=== PATIENT | female | born 1985 | race Caucasian/White ===

== ENCOUNTER 2018-01-08 16:48 | Emergency (ER) | payer SELFPAY ==
[2018-01-08] MEDS ORDERED: METOCLOPRAMIDE 10 MG/2mL INJ ONE (18:05)
[2018-01-08] MEDS ORDERED: DIPHENHYDRAMINE 50 MG/ML VIAL ONE (18:05)
[2018-01-08 18:11] LABS: ALT/SGPT 21 U/L (12-78); AST/SGOT 15 U/L (15-37); Albumin 3.7 g/dL (3.4-5.0); Alkaline Phosphatase 70 U/L (45-117); BUN Blood Urea Nitrogen 8 mg/dL (7-18); Bicarbonate 26 mmol/L (21-32); Bilirubin Total 0.2 mg/dL (0.2-1.0); Glucose Level 99 mg/dL (74-106); Potassium 3.6 mmol/L (3.5-5.1); Sodium Level 142 mmol/L (136-145); Troponin (Emerg Dept Use Only) < 0.02 ng/mL (0.0-0.045)
[2018-01-08 18:25] LABS: Absolute Lymphocytes (CBC) 1.7 K/uL (0.7-4.9); Absolute Monocytes 0.5 K/uL (0.1-1.3); Absolute Neutrophil 5.1 K/uL (1.8-8.0); Basophils % 0.7 % (0-1.3); Eosinophils % 2.3 % (0-4.4); Lymphocytes % 22.9 % (15.3-44.8); MCV 63.3 fL (80-100); MPV 7.9 fL (7.6-11.3); RBC Red Blood Cell Count 4.59 M/uL (3.86-4.86)
--- NOTE | 2018-01-08 18:49 | EDPHYS ---
Physician Documentation [facility] Name: Danielle Arroyo Age: 32 yrs Sex: Female : 1985 Arrival Date: 01/08/2018 Time: 16:51 Bed 27 Private MD: Brooks George E ED Physician Kole Robles HPI: 01/08 18:41 This 32 yrs old Female presents to ER via Wheelchair with complaints of ps1 Headache. 18:41 patient presenting with generalized fatigue, lightheaded, and headache. Headache ps1 described as throbbing. History of headaches before in the past. States that she gets more lightheaded with exertion as if she was walking on clouds and with tunnel vision. Worse with menses. Recently on menstrual cycle. No chest pain, tightness, or pressure.. 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 - Social history:: Smoking status: Patient/guardian denies using tobacco. - Ebola Screening: : No symptoms or risks identified at this time. ROS: 18:41 Eyes: Negative for injury, pain, redness, and discharge, ENT: Negative for injury, ps1 pain, and discharge, Cardiovascular: Negative for chest pain, palpitations, and edema, Respiratory: Negative for shortness of breath, cough, wheezing, and pleuritic chest pain, Abdomen/GI: Negative for abdominal pain, nausea, vomiting, diarrhea, and constipation, MS/Extremity: Negative for injury and deformity, Skin: Negative for injury, rash, and discoloration. 18:41 Constitutional: Positive for fatigue. 18:41 Neuro: Positive for near syncope. Exam: 18:41 Constitutional: This is a well developed, well nourished patient who is awake, alert, ps1 and in no acute distress. Head/Face: Normocephalic, atraumatic. Chest/axilla: Normal chest wall appearance and motion. Nontender with no deformity. No lesions are appreciated. Cardiovascular: Regular rate and rhythm. No gallops, murmurs, or rubs. Normal PMI, no JVD. No pulse deficits. Respiratory: Lungs have equal breath sounds bilaterally, clear to auscultation and percussion. No rales, rhonchi or wheezes noted. No increased work of breathing, no retractions or nasal flaring. Abdomen/GI: Soft, non-tender, with normal bowel sounds. No distension or tympany. No guarding or rebound. No evidence of tenderness throughout. MS/ Extremity: Pulses equal, no cyanosis. Neurovascular intact. Full, normal range of motion. Neuro: Awake and alert, GCS 15, oriented to person, place, time, and situation. Cranial nerves II-XII grossly intact. Sensory grossly intact. Vital Signs: 17:03 BP 124 / 79; Pulse 95; Resp 18; Temp 98.3; Pulse Ox 100% ; Weight 99.79 kg; Height 5 sv ft. 3 in. (160.02 cm); Pain 7/10; 17:03 Body Mass Index 38.97 (99.79 kg, 160.02 cm) sv MDM: 17:38 Patient medically screened. ps1 17:48 Data reviewed: vital signs, nurses notes, lab test result(s), EKG, radiologic studies, ps1 and as a result, I will discharge patient. 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 . 11 17:32 Order name: CBC with Diff ps1 01/08 17:32 Order name: CMP; Complete Time: 18:25 ps1 01/08 17:32 Order name: Troponin (emerg Dept Use Only); Complete Time: 18:25 ps1 01/08 18:36 Order name: CBC Smear Scan EDMS 01/08 17:02 Order name: Urine Test (obtain specimen) sn 01/08 17:02 Order name: Urine Dipstick-Ancillary (obtain specimen) [facility] 01/08 17:32 Order name: Orthostatics ps1 01/08 17:32 Order name: EKG - Nurse/Tech; Complete Time: 17:54 ps1 EC:48 Rate is 76 beats/min. Rhythm is regular. QRS [place] is Normal. [place] interval is normal. QRS ps1 interval is normal. QT interval is normal. No Q waves. T waves are Normal. No ST changes noted. Clinical impression: Normal ECG. Interpreted by me. Administered Medications: 18:00 Drug: Reglan 10 mg Route: IVP; Site: right forearm; rv 18:59 Follow up: Response: No adverse reaction rv 18:00 Drug: Benadryl 50 mg Route: IVP; Site: left forearm; rv 18:59 Follow up: Response: No adverse reaction rv Disposition: 01/08/18 18:48 Discharged to Home. Impression: Iron deficiency anemia, Fatigue, lightheaded, migraine. - Condition is Stable. - Discharge Instructions: Iron Deficiency Anemia, Adult. - Prescriptions for Ferrous Sulfate 325 mg (65 mg Iron) Oral Tablet - take 1 tablet by ORAL route every 8 hours; 90 tablet. - Medication Reconciliation Form, Thank You Letter, Antibiotic Education, Prescription Opioid Use form. - Follow up: Brooks George MD; When: As needed; Reason: Recheck today's complaints, Continuance of care, Re-evaluation by your physician. Follow up: Emergency Department; When: As needed; Reason: Worsening of condition. - Problem is chronic. - Symptoms have worsened. Signatures: Dispatcher [employer] EDMehreen Summers, RN RN sv Gunjan Ca, DISTRICT CLAIMS MANAGER-C DISTRICT CLAIMS MANAGER-Csnw Kole Robles MD MD ps1 Ger Zheng RN RN rv Corrections: (The following items were deleted from the chart) 19:10 18:48 01/08/2018 18:48 Discharged to Home. Impression: Iron deficiency anemia; Fatigue; rv lightheaded; migraine. Condition is Stable. Forms are Medication Reconciliation Form, Thank You Letter, Antibiotic Education, Prescription Opioid Use. Follow up: Brooks George; When: As needed; Reason: Recheck today's complaints, Continuance of care, Re-evaluation by your physician. Follow up: Emergency Department; When: As needed; Reason: Worsening of condition. Problem is chronic. Symptoms have worsened. ps1
--- NOTE | 2018-01-08 18:49 | ER ---
Nurse's Notes [facility] Name: Danielle Arroyo Age: 32 yrs Sex: Female : 1985 Arrival Date: 01/08/2018 Time: 16:51 Bed 27 Private MD: Brooks George E Diagnosis: Iron deficiency anemia;Fatigue;lightheaded;migraine Presentation: 01/08 17:01 Presenting complaint: Patient states: frontal headache started today after becoming sv dizzy. Pt reports she's been dizzy for months but it got bad today. c/o photophobia, nausea and blurry vision. Transition of care: patient was not received from another setting of care. Onset of symptoms was January 08, 2018. Care prior to arrival: None. 17:01 Method Of Arrival: Wheelchair sv 17:01 Acuity: MICHELLE 3 sv 18:07 Risk Assessment: Do you want to hurt yourself or someone else? Patient reports no rv desire to harm self or others. Initial Sepsis Screen: Does the patient meet any 2 criteria? No. Patient's initial sepsis screen is negative. Does the patient have a suspected source of infection? No. Patient's initial sepsis screen is negative. Triage Assessment: 18:09 Headache History: The patient has had previous headaches and this one is similar to rv previous episodes. General: Appears in no apparent distress. uncomfortable, Behavior is calm, cooperative. Pain: Pain currently is 8 out of 10 on a pain scale. Pain began suddenly, 1 hour ago. Also complains of photophobia. 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 - Social history:: Smoking status: Patient/guardian denies using tobacco. - Ebola Screening: : No symptoms or risks identified at this time. Screenin:07 Abuse screen: Denies threats or abuse. Denies injuries from another. Nutritional rv screening: No deficits noted. Tuberculosis screening: No symptoms or risk factors identified. Fall Risk None identified. Assessment: 18:06 General: Appears in no apparent distress. comfortable, Behavior is calm, cooperative. rv Pain: Complains of pain in head. Neuro: Level of Consciousness is awake, alert, obeys commands, Oriented to person, place, time, situation. Cardiovascular: Capillary refill < 3 seconds Rhythm is regular. Respiratory: Airway is patent. GI: No signs and/or symptoms were reported involving the gastrointestinal system. : No signs and/or symptoms were reported regarding the genitourinary system. EENT: No signs and/or symptoms were reported regarding the EENT system. Derm: Skin is intact. Musculoskeletal: No signs and/or symptoms reported regarding the musculoskeletal system. Vital Signs: 17:03 BP 124 / 79; Pulse 95; Resp 18; Temp 98.3; Pulse Ox 100% ; Weight 99.79 kg; Height 5 sv ft. 3 in. (160.02 cm); Pain 7/10; 17:03 Body Mass Index 38.97 (99.79 kg, 160.02 cm) sv ED Course: 16:51 Patient arrived in ED. sb2 16:51 Brooks George MD is Private Physician. sb2 17:02 Triage completed. sv 17:03 Arm band placed on. sv 17:09 Kole Robles MD is Attending Physician. ps1 17:45 Inserted saline lock: 20 gauge in right forearm, using aseptic technique. Blood rv collected. 17:45 Initial lab(s) drawn, by me, sent to lab. EKG done, by ED staff, reviewed by Kole Robles MD. 17:54 CBC with Diff Sent. rv 17:54 CMP Sent. rv 17:54 Troponin (emerg Dept Use Only) Sent. rv 18:07 Patient has correct armband on for positive identification. Bed in low position. Call rv light in reach. Side rails up X2. Adult w/ patient. Pulse ox on. NIBP on. 18:48 Brooks George MD is Referral Physician. ps1 19:00 No provider procedures requiring assistance completed. IV discontinued, bleeding rv controlled, No redness/swelling at site. Pressure dressing applied. Administered Medications: 18:00 Drug: Reglan 10 mg Route: IVP; Site: right forearm; rv 18:59 Follow up: Response: No adverse reaction rv 18:00 Drug: Benadryl 50 mg Route: IVP; Site: left forearm; rv 18:59 Follow up: Response: No adverse reaction rv Outcome: 18:48 Discharge ordered by . ps1 19:00 Discharged to home via wheelchair. rv 19:00 Condition: good 19:00 Discharge instructions given to patient, Instructed on discharge instructions, follow up and referral plans. medication usage, Demonstrated understanding of instructions, follow-up care, medications. 19:10 Patient left the ED. rv Signatures: Mehreen Camacho RN RN sv Kole Robles MD MD ps1 Mirna Tamez sb2 Ger Zheng RN RN rv Corrections: (The following items were deleted from the chart) 17:03 17:01 Presenting complaint: Patient states: frontal headache started today after sv becoming dizzy. Pt reports she's been dizzy for months but it got bad today. c/o photophobia, nausea. sv
[2018-01-08 18:57] LABS: Urine White Blood Cell Casts OK
[2018-01-08 18:58] LABS: Anisocytosis 1+; Blood Morphology Comment NOTED (NOT SEEN); Elliptocytes 1+; Hypochromasia 2+; Platelet Estimate ADEQ; Stomatocytes 1+
--- NOTE | 2018-01-09 07:39 | EKG ---
Test Date: 2018-01-08 Test Time: 17:48:36 Customs Patrol Officer: MEASUREMENT RESULTS: Intervals: Rate: 76 ID: [id number] QRSD: 88 QT: 374 QTc: 420 [place]: P: 45 ID: [id number] QRS: 50 T: 41 INTERPRETIVE STATEMENTS: Normal sinus rhythm Normal ECG No previous ECG available for comparison Electronically Signed On 01-09-18 07:38:44 COURSEWARE DEVELOPER by Yvon Nassar
== END 2018-01-08 19:10 | disposition home or self-care (01) ==
LOC: ER 16:48
DX: G43.909 Migraine, unspecified, not intractable, without status migrainosus (principal); D50.9 Iron deficiency anemia, unspecified; R53.83 Other fatigue; R42 Dizziness and giddiness
CPT/HCPCS: 36415; 80053; 84484; 85025; 93005; 99284; J2765

== ENCOUNTER 2018-06-17 10:26 | Emergency (ER) | payer BC, SELFPAY ==
[2018-06-17 11:09] LABS: Absolute Lymphocytes (CBC) 0.3 K/uL (0.7-4.9); Absolute Monocytes 0.4 K/uL (0.1-1.3); Absolute Neutrophil 8.4 K/uL (1.8-8.0); Basophils % 0.3 % (0-1.3); Eosinophils % 2.1 % (0-4.4); Lymphocytes % 3.3 % (15.3-44.8); MPV 8.4 fL (7.6-11.3); RBC Red Blood Cell Count 5.02 M/uL (3.86-4.86)
[2018-06-17] MEDS ORDERED: ONDANSETRON 4 MG/2 ML VIAL ONE ×2 (11:15→15:23)
[2018-06-17] MEDS ORDERED: MORPHINE 2 MG/ML SYR ONE (11:15)
[2018-06-17] MEDS ORDERED: FAMOTIDINE 20 MG/2 ML VIAL IV ONE (11:15)
[2018-06-17] MEDS ORDERED: NA CHLORIDE 0.9% 1,000 ML ONE ×2 (11:15→12:40)
[2018-06-17 11:26] LABS: Albumin 3.8 g/dL (3.4-5.0); Bilirubin Direct 0.1 mg/dL (0-0.2); Bilirubin Total 0.6 mg/dL (0.2-1.0); Potassium 3.8 mmol/L (3.5-5.1); Protein, Total 8.4 g/dL (6.4-8.2)
[2018-06-17 13:13] LABS: Hypochromasia 2+; Platelet Estimate ADEQ; Urine White Blood Cell Casts OK
[2018-06-17 13:40] LABS: Blood Morphology Comment NOT SEEN (NOT SEEN)
[2018-06-17 13:47] LABS: Phosphorus 1.1 mg/dL (2.5-4.9)
--- NOTE | 2018-06-17 14:09 | EDPHYS ---
Physician Documentation [facility] Name: Danielle Arroyo Age: 33 yrs Sex: Female : 1985 Arrival Date: 06/17/2018 Time: 10:31 Bed 5 Private MD: ED Physician Rajesh Chance HPI: 06/17 11:00 This 33 yrs old Female presents to ER via Wheelchair with complaints of cp Vomiting/Diarrhea. 11:00 The patient presents to the emergency department with nausea, with "dry heaves", cp vomiting, that is continuous, diarrhea, that is continuous. Onset: The symptoms/episode began/occurred last night. 11:00 Possible causes: bad food exposure, ate clam bake earlier yesterday. cp 11:00 Associated signs and symptoms: Pertinent negatives: fever, GI bleeding. Severity of cp symptoms: in the emergency department the symptoms are unchanged despite home interventions. Historical: - Allergies: 10:43 No Known Allergies; sv - PMHx: 10:43 None; sv - PSHx: 10:43 back surgery; ; gastric sleeve; sv - Immunization history:: Adult Immunizations up to date. - Ebola Screening: : Patient denies travel to an Ebola-affected area in the 21 days before illness onset. ROS: 11:10 Constitutional: Positive for poor PO intake, Negative for body aches, chills, fever. cp 11:10 Eyes: Negative for injury, pain, redness, and discharge. cp 11:10 ENT: Negative for drainage from ear(s), ear pain, sore throat, difficulty swallowing, difficulty handling secretions. 11:10 Cardiovascular: Negative for chest pain, edema, palpitations. 11:10 Respiratory: Negative for cough, shortness of breath, wheezing. 11:10 Abdomen/GI: Positive for abdominal pain, nausea, vomiting, and diarrhea, Negative for constipation, hematemesis, black/tarry stool, rectal bleeding. 11:10 Back: Negative for pain at rest, pain with movement. 11:10 : Negative for urinary symptoms, vaginal bleeding, vaginal discharge. 11:10 Skin: Negative for rash. 11:10 Neuro: Positive for dizziness, Negative for altered mental status, weakness. 11:10 All other systems are negative. Exam: 11:15 Constitutional: The patient appears in no acute distress, alert, awake, cp non-diaphoretic, non-toxic, well developed, well nourished, obese, uncomfortable. 11:15 Head/Face: Normocephalic, atraumatic. cp 11:15 Eyes: Periorbital structures: appear normal, Conjunctiva: normal, no exudate, no injection, Sclera: no appreciated abnormality, Lids and lashes: appear normal, bilaterally. 11:15 ENT: External ear(s): are unremarkable, Nose: is normal, Mouth: Lips: moist, Oral mucosa: pink and intact, moist, Posterior pharynx: is normal, airway is patent, no erythema, no exudate. 11:15 Chest/axilla: Inspection: normal, Palpation: is normal, no crepitus, no tenderness. 11:15 Cardiovascular: Rate: tachycardic, Rhythm: regular, Edema: is not appreciated, JVD: is not appreciated. 11:15 Respiratory: the patient does not display signs of respiratory distress, Respirations: normal, no use of accessory muscles, no retractions, no splinting, no tachypnea, labored breathing, is not present, Breath sounds: are clear throughout, no decreased breath sounds, no stridor, no wheezing. 11:15 Abdomen/GI: Inspection: obese Bowel sounds: active, all quadrants, Palpation: soft, in all quadrants, moderate abdominal tenderness, in all quadrants, rebound tenderness, is not appreciated, voluntary guarding, is elicited in all quadrants, involuntary guarding, is not appreciated. 11:15 Back: pain, is absent, ROM is normal. 11:15 Skin: no rash present. Vital Signs: 10:43 BP 115 / 79; Pulse 126; Resp 20; Temp 100; Pulse Ox 99% ; Weight 102.06 kg; Height 5 sv ft. 3 in. (160.02 cm); Pain 7/10; 11:10 BP 118 / 73; Pulse 113; Resp 20; Pulse Ox 100% on R/A; aj1 12:39 BP 125 / 57; Pulse 105; Resp 18; Pulse Ox 100% on R/A; aj1 13:30 BP 132 / 62; Pulse 99; Resp 18; Pulse Ox 100% on R/A; aj1 14:30 BP 131 / 69; Pulse 99; Resp 18; Pulse Ox 100% on R/A; aj1 10:43 Body Mass Index 39.86 (102.06 kg, 160.02 cm) sv MDM: 10:47 Patient medically screened. [facility] 14:07 Data reviewed: vital signs, nurses notes, lab test result(s), and as a result, I will cp discharge patient. 14:07 Differential diagnosis: gastritis, cholecystitis, pancreatitis, appendicitis, viral cp gastroenteritis, gastroenteritis. Counseling: I had a detailed discussion with the patient and/or guardian regarding: the historical points, exam findings, and any diagnostic results supporting the discharge/admit diagnosis, lab results, to return to the emergency department if symptoms worsen or persist or if there are any questions or concerns that arise at home. Response to treatment: the patient's symptoms have markedly improved after treatment, VSS. Vomiting resolved and pain markedly improved. Will discharge to home for continued monitoring. 06/17 10:56 Order name: Basic Metabolic Panel; Complete Time: 11:37 [facility] 06/17 11:38 Interpretation: Normal except: CL 109; GLUC 127; GFR 62; CA 8.3. 06/17 10:56 Order name: CBC with Diff; Complete Time: 14:02 [facility] 06/17 11:38 Interpretation: Normal except: RBC 5.02; HGB 9.8; HCT 32.0; MCV 63.8; MCH 19.5; MCHC cp 30.5; RDW 17.2; VANDANA% 90.3; LYM% 3.3; NEUT A 8.4; LYMA 0.3. 06/17 10:56 Order name: Creatinine for Radiology; Complete Time: 11:37 [facility] 06/17 10:56 Order name: Hepatic Function; Complete Time: 11:37 [facility] 06/17 11:39 Interpretation: Normal except: AST 13; TP 8.4; GLOB 4.6; A/G 0.8. 06/17 10:56 Order name: Lipase; Complete Time: 11:37 [facility] 06/17 11:01 Order name: Magnesium; Complete Time: 14:02 06/17 11:01 Order name: Phosphorus; Complete Time: 14:02 06/17 14:02 Interpretation: Abnormal: PHOS 1.1. 06/17 11:34 Order name: CBC Smear Scan; Complete Time: 14:02 EDMS 06/17 14:45 Order name: Urine Dipstick--Ancillary (enter results); Complete Time: 15:23 ms 06/17 15:23 Interpretation: Normal except: UESTR 1+. cp 06/17 14:45 Order name: Urine --Ancillary (enter results); Complete Time: 15:23 ms 06/17 10:56 Order name: IV Saline Lock; Complete Time: 11:10 [facility] 06/17 10:56 Order name: Labs collected and sent; Complete Time: 11:10 [facility] 06/17 11:49 Order name: PO challenge; Complete Time: 12:36 cp Administered Medications: 11:08 Drug: Zofran 4 mg Route: IVP; Site: right antecubital; aj1 12:00 Follow up: Response: No adverse reaction; Nausea is decreased aj1 11:08 Drug: Pepcid 20 mg Route: IVP; Site: right antecubital; aj1 12:00 Follow up: Response: No adverse reaction aj1 11:08 Drug: morphine 2 mg Route: IVP; Site: right antecubital; aj1 12:00 Follow up: Response: No adverse reaction; Pain is decreased aj1 11:09 Drug: NS 0.9% 1000 ml Route: IV; Rate: 1 bolus; Site: right antecubital; aj1 14:36 Follow up: IV Status: Completed infusion; IV Intake: 1000ml aj1 12:36 Drug: NS 0.9% 1000 ml Route: IV; Rate: 1 bolus; Site: right antecubital; aj1 14:35 Follow up: IV Status: Completed infusion; IV Intake: 1000ml aj1 15:19 Drug: Zofran 4 mg Route: IVP; Site: right antecubital; aj1 15:52 Follow up: Response: No adverse reaction aj1 15:51 Drug: Potassium \\T\\ Sodium Phosphates 280 mg-160 mg-250 mg 2 packets Route: PO; aj1 15:51 Follow up: Response: No adverse reaction aj1 Disposition: 06/18 07:54 Co-signature as Attending Physician, Rajesh Chance MD I agree with the assessment and dany plan of care. Disposition: 06/17/18 14:08 Discharged to Home. Impression: Nausea and vomiting, Diarrhea, unspecified, Iron deficiency anemia. - Condition is Stable. - Discharge Instructions: Iron Deficiency Anemia, Adult, Diarrhea, Adult, Nausea and Vomiting, Adult, Hypophosphatemia. - Prescriptions for Zofran 4 mg Oral Tablet - take 1 tablet by ORAL route every 12 hours As needed; 20 tablet. Bentyl 20 mg Oral Tablet - take 1 tablet by ORAL route every 6 hours As needed; 20 tablet. - Medication Reconciliation Form, Thank You Letter, Antibiotic Education, Prescription Opioid Use form. - Follow up: Private Physician; When: 1 - 2 days; Reason: Worsening of condition. - Problem is new. - Symptoms have improved. Signatures: Dispatcher [employer] EDMI Louisa Plata RN RN aj1 Mehreen Camacho RN RN Rajesh Braxton MD MD cha Page, Corey, PA PA cp Corrections: (The following items were deleted from the chart) 06/17 11:38 11:37 Normal except: CL 109; GLUC 127; GFR 62. cp cp 14:11 14:08 06/17/2018 14:08 Discharged to Home. Impression: Nausea and vomiting; Diarrhea, cp unspecified. Condition is Stable. Forms are Medication Reconciliation Form, Thank You Letter, Antibiotic Education, Prescription Opioid Use. Follow up: Private Physician; When: 1 - 2 days; Reason: Worsening of condition. Problem is new. Symptoms have improved. cp 15:56 14:11 06/17/2018 14:08 Discharged to Home. Impression: Nausea and vomiting; Diarrhea, aj1 unspecified; Iron deficiency anemia. Condition is Stable. Discharge Instructions: Diarrhea, Adult, Nausea and Vomiting, Adult, Hypophosphatemia. Prescriptions for Zofran 4 mg Oral Tablet - take 1 tablet by ORAL route every 12 hours As needed; 20 tablet. and Forms are Medication Reconciliation Form, Thank You Letter, Antibiotic Education, Prescription Opioid Use. Follow up: Private Physician; When: 1 - 2 days; Reason: Worsening of condition. Problem is new. Symptoms have improved. cp
--- NOTE | 2018-06-17 14:09 | ER ---
Nurse's Notes [facility] Name: Danielle Arroyo Age: 33 yrs Sex: Female : 1985 Arrival Date: 06/17/2018 Time: 10:31 Bed 5 Private MD: Diagnosis: Nausea and vomiting;Diarrhea, unspecified;Iron deficiency anemia Presentation: 06/17 10:42 Presenting complaint: Patient states: diffuse abd pain, n/v/d since 0300 today and sv headache started at 0500. Feels faint. Transition of care: patient was not received from another setting of care. Onset of symptoms was June 17, 2018 at 03:00. Care prior to arrival: None. 10:42 Method Of Arrival: Wheelchair sv 10:42 Acuity: MICHELLE 3 sv 11:13 Risk Assessment: Do you want to hurt yourself or someone else? Patient reports no aj1 desire to harm self or others. Initial Sepsis Screen: Does the patient meet any 2 criteria? HR > 90 bpm. No. Patient's initial sepsis screen is negative. Does the patient have a suspected source of infection? Yes: Acute abdominal pain. Historical: - Allergies: 10:43 No Known Allergies; sv - PMHx: 10:43 None; sv - PSHx: 10:43 back surgery; ; gastric sleeve; sv - Immunization history:: Adult Immunizations up to date. - Ebola Screening: : Patient denies travel to an Ebola-affected area in the 21 days before illness onset. Screenin:45 Abuse screen: Denies threats or abuse. Denies injuries from another. Nutritional aj1 screening: No deficits noted. Tuberculosis screening: No symptoms or risk factors identified. 15:55 Fall Risk None identified. aj1 Assessment: 10:45 General: Appears in no apparent distress. uncomfortable, Behavior is calm, cooperative, aj1 appropriate for age. Pain: Complains of pain in right upper quadrant and left upper quadrant. Neuro: Level of Consciousness is awake, alert, obeys commands, Oriented to person, place, time, situation, Speech is normal, Facial symmetry appears normal, Reports dizziness, headache. Cardiovascular: Patient's skin is warm and dry. Respiratory: Airway is patent Respiratory effort is even, unlabored, Respiratory pattern is regular, symmetrical. GI: Abdomen is non-distended, Reports diarrhea, nausea, vomiting. : No signs and/or symptoms were reported regarding the genitourinary system. EENT: No signs and/or symptoms were reported regarding the EENT system. Derm: No signs and/or symptoms reported regarding the dermatologic system. Skin is pink, warm \T\ dry. normal. Musculoskeletal: No signs and/or symptoms reported regarding the musculoskeletal system. Circulation, motion, and sensation intact. 10:45 Reassessment: Patient appears in no apparent distress at this time. No changes from aj1 previously documented assessment. Patient and/or family updated on plan of care and expected duration. Pain level reassessed. Patient is alert, oriented x 3, equal unlabored respirations, skin warm/dry/pink. 12:38 Reassessment: Patient reports that she is feeling much better, PO challenge initiated. aj1 13:30 Reassessment: Patient appears in no apparent distress at this time. No changes from aj1 previously documented assessment. Patient and/or family updated on plan of care and expected duration. Pain level reassessed. Patient is alert, oriented x 3, equal unlabored respirations, skin warm/dry/pink. Patient has tolerated oral fluids. 14:38 Reassessment: Patient appears in no apparent distress at this time. No changes from aj1 previously documented assessment. Patient and/or family updated on plan of care and expected duration. Pain level reassessed. Patient is alert, oriented x 3, equal unlabored respirations, skin warm/dry/pink. 15:20 Reassessment: Nutriphos has arrived from [facility] upon entering patient's room she is aj1 vomiting again. Notified NASREEN Ward. Patient medicated with Zofran, instructed to wait until nausea subsides, drink Nutriphos and notify staff for discharge. 15:54 Reassessment: Patient states that she is feeling better and is ready to be discharged. aj1 Vital Signs: 10:43 BP 115 / 79; Pulse 126; Resp 20; Temp 100; Pulse Ox 99% ; Weight 102.06 kg; Height 5 sv ft. 3 in. (160.02 cm); Pain 7/10; 11:10 BP 118 / 73; Pulse 113; Resp 20; Pulse Ox 100% on R/A; aj1 12:39 BP 125 / 57; Pulse 105; Resp 18; Pulse Ox 100% on R/A; aj1 13:30 BP 132 / 62; Pulse 99; Resp 18; Pulse Ox 100% on R/A; aj1 14:30 BP 131 / 69; Pulse 99; Resp 18; Pulse Ox 100% on R/A; aj1 10:43 Body Mass Index 39.86 (102.06 kg, 160.02 cm) sv ED Course: 10:31 Patient arrived in ED. mr 10:43 Triage completed. sv 10:44 Rajesh Peters PA is PHCP. cp 10:44 Rajesh Chance MD is Attending Physician. cp 10:44 Louisa Plata RN is Primary Nurse. aj1 10:44 Arm band placed on. sv 10:45 Patient has correct armband on for positive identification. Bed in low position. Call aj1 light in reach. Side rails up X 1. 10:45 No provider procedures requiring assistance completed. aj1 10:55 Inserted saline lock: 20 gauge in right antecubital area, using aseptic technique. aj1 Blood collected. 15:55 IV discontinued, intact, bleeding controlled, No redness/swelling at site. Pressure aj1 dressing applied. Administered Medications: 11:08 Drug: Zofran 4 mg Route: IVP; Site: right antecubital; aj1 12:00 Follow up: Response: No adverse reaction; Nausea is decreased aj1 11:08 Drug: Pepcid 20 mg Route: IVP; Site: right antecubital; aj1 12:00 Follow up: Response: No adverse reaction aj1 11:08 Drug: morphine 2 mg Route: IVP; Site: right antecubital; aj1 12:00 Follow up: Response: No adverse reaction; Pain is decreased aj1 11:09 Drug: NS 0.9% 1000 ml Route: IV; Rate: 1 bolus; Site: right antecubital; aj1 14:36 Follow up: IV Status: Completed infusion; IV Intake: 1000ml aj1 12:36 Drug: NS 0.9% 1000 ml Route: IV; Rate: 1 bolus; Site: right antecubital; aj1 14:35 Follow up: IV Status: Completed infusion; IV Intake: 1000ml aj1 15:19 Drug: Zofran 4 mg Route: IVP; Site: right antecubital; aj1 15:52 Follow up: Response: No adverse reaction aj1 15:51 Drug: Potassium \T\ Sodium Phosphates 280 mg-160 mg-250 mg 2 packets Route: PO; aj1 15:51 Follow up: Response: No adverse reaction aj1 Intake: 14:35 IV: 1000ml; Total: 1000ml. aj1 14:36 IV: 1000ml; Total: 2000ml. aj1 Outcome: 14:08 Discharge ordered by . cp 15:55 Discharged to home ambulatory. aj1 15:55 Condition: good 15:55 Discharge instructions given to patient, Instructed on discharge instructions, follow up and referral plans. medication usage, Demonstrated understanding of instructions, follow-up care, medications, Prescriptions given X 2. 15:56 Patient left the ED. aj1 Signatures: Louisa Plata RN RN aj Mehreen Camacho RN RN sv Shruthi Dwyer mr Rajesh Peters PA PA cp Corrections: (The following items were deleted from the chart) 10:49 10:42 Presenting complaint: Patient states: diffuse abd pain, n/v/d since 0300 today. sv Feels faint. sv
[2018-06-17 14:57] LABS: Urine Blood NEGATIVE (NEG); Urine Glucose NEGATIVE (NEG); Urine Protein NEGATIVE (NEG); Urine Specific Gravity 1.015 (1.005-1.030); Urine pH 5.5 (5.0-7.0)
[2018-06-17] MEDS ORDERED: POTASS/SODIUM PHOSPHATE 1 PKT POWD.PACK PO ONE (15:00)
== END 2018-06-17 15:56 | disposition home or self-care (01) ==
LOC: ER 10:26
DX: R19.7 Diarrhea, unspecified (principal); R11.2 Nausea with vomiting, unspecified; D50.9 Iron deficiency anemia, unspecified
CPT/HCPCS: 36415; 80048; 80076; 81003; 81025; 83690; 83735; 84100; 85025; 96361; 96374; 96375; 99284; J2270; J2405; J7030

== ENCOUNTER 2018-10-28 09:23 | Emergency (ER) | payer BC ==
[2018-10-28] MEDS ORDERED: KETOROLAC 30 MG/ML INJ ONE (10:50)
[2018-10-28] MEDS ORDERED: NA CHLORIDE 0.9% 1,000 ML ONE ×2 (10:50→12:23)
[2018-10-28] MEDS ORDERED: PROMETHAZINE 25 MG/ML VIAL ONE (10:50)
[2018-10-28 11:04] LABS: Absolute Lymphocytes (CBC) 0.3 K/uL (0.7-4.9); Basophils % 0.3 % (0-1.3); Hematocrit 28.9 % (36.0-45.0); Lymphocytes % 3.1 % (15.3-44.8); MPV 7.6 fL (7.6-11.3); RBC Red Blood Cell Count 4.58 M/uL (3.86-4.86)
[2018-10-28 11:11] LABS: Urine Bacteria 20-50 /HPF (<20); Urine Culture Reflex Order REFLEXED; Urine Mucus 1+ /HPF (NONE SEEN); Urine RBC <5 /HPF (NONE SEEN)
[2018-10-28 11:11] LABS: Urine Blood NEGATIVE (NEG); Urine Glucose NEGATIVE (NEG); Urine Protein NEGATIVE (NEG)
[2018-10-28] MEDS ORDERED: CEFTRIAXONE/SWI 1gm 1 GM/10 ML SYR ONE (11:20)
[2018-10-28 11:31] LABS: Albumin 3.3 g/dL (3.4-5.0); Bilirubin Direct 0.1 mg/dL (0-0.2); Bilirubin Total 0.4 mg/dL (0.2-1.0); Potassium 3.8 mmol/L (3.5-5.1); Protein, Total 7.9 g/dL (6.4-8.2); Thyroid Stimulating Hormone 0.481 uIU/mL (0.360-3.740)
[2018-10-28 12:35] LABS: Blood Morphology Comment NOT SEEN (NOT SEEN); Platelet Estimate ADEQ; Urine White Blood Cell Casts OK
--- NOTE | 2018-10-28 12:38 | ER ---
Nurse's Notes [facility] Name: Danielle Arroyo Age: 33 yrs Sex: Female : 1985 Arrival Date: 10/28/2018 Time: 09:26 Bed 16 Private MD: Brooks George E Diagnosis: Nausea and vomiting;Diarrhea, unspecified;Dehydration;Urinary tract infection, site not specified;Iron deficiency anemia Presentation: 10/28 09:49 Presenting complaint: Patient states: abd pain, N/V/D since early this morning. la1 Transition of care: patient was not received from another setting of care. Onset of symptoms was October 28, 2018. Risk Assessment: Do you want to hurt yourself or someone else? Patient reports no desire to harm self or others. Initial Sepsis Screen: Does the patient meet any 2 criteria? No. Patient's initial sepsis screen is negative. Does the patient have a suspected source of infection? No. Patient's initial sepsis screen is negative. Care prior to arrival: None. 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 - Social history:: Smoking status: Patient/guardian denies using tobacco. - Ebola Screening: : No symptoms or risks identified at this time. Screenin:10 Abuse screen: Denies threats or abuse. Denies injuries from another. Nutritional sg screening: No deficits noted. Tuberculosis screening: No symptoms or risk factors identified. Never had TB. Fall Risk None identified. Assessment: 10:10 General: Appears in no apparent distress. well groomed, well developed, well nourished, sg Behavior is calm, cooperative, appropriate for age. Pain: Complains of pain in left upper quadrant and epigastric area Quality of pain is described as aching. Neuro: Level of Consciousness is awake, alert, obeys commands, Oriented to person, place, time, situation, Lard Refiner are equal bilaterally Moves all extremities. Full function Gait is steady, Speech is normal, Facial symmetry appears normal. Cardiovascular: Capillary refill is brisk in bilateral fingers Patient's skin is warm and dry. Chest pain is denied. Respiratory: Airway is patent Respiratory effort is even, unlabored, Respiratory pattern is regular, symmetrical. GI: Bowel sounds present X 4 quads. Abd is soft and non tender X 4 quads. : Reports urgency, urinary frequency. EENT: No signs and/or symptoms were reported regarding the EENT system. Derm: Skin is pink, warm \T\ dry. Musculoskeletal: Circulation, motion, and sensation intact. Range of motion: intact in all extremities. 10:55 Reassessment: Patient appears in no apparent distress at this time. sg Vital Signs: 09:50 BP 132 / 76; Pulse 122; Resp 16; Temp 97.8; Pulse Ox 100% on R/A; Weight 111.13 kg; la1 Height 5 ft. 3 in. (160.02 cm); 11:00 BP 127 / 70; Pulse 110; Resp 16; Pulse Ox 99% on R/A; sg 12:24 BP 108 / 65; Pulse 102; Resp 16; Pulse Ox 99% on R/A; sg 09:50 Body Mass Index 43.40 (111.13 kg, 160.02 cm) la1 ED Course: 09:26 Patient arrived in ED. mr 09:26 Brooks George MD is Private Physician. mr 09:48 Gunjan Ca F[facility]-Rufina [facility]. snw 09:48 Rajesh Chance MD is Attending Physician. snw 09:49 Triage completed. la1 09:50 Arm band placed on left wrist. la1 09:55 Homer Perkins, BELKYS is Primary Nurse. sg 10:10 Patient has correct armband on for positive identification. Bed in low position. Call sg light in reach. Side rails up X2. Pulse ox on. NIBP on. Warm blanket given. Head of bed elevated. 10:10 No provider procedures requiring assistance completed. sg 10:23 Urine collected: clean catch specimen, cloudy. dh3 10:45 Initial lab(s) drawn, by me, sent to lab. First set of blood cultures drawn by me. sg Inserted saline lock: 20 gauge in right antecubital area, using aseptic technique. Blood collected. 12:35 Brooks George MD is Referral Physician. snw 13:00 IV discontinued, intact, bleeding controlled, No redness/swelling at site. Pressure sg dressing applied. Administered Medications: 10:50 Drug: TORadol 30 mg Route: IVP; Site: right antecubital; sg 10:50 Drug: Phenergan 6.25 mg Route: IVP; Site: right antecubital; sg 10:56 Drug: NS 0.9% 1000 ml Route: IV; Rate: 1 bolus; Site: right antecubital; sg 11:25 Drug: Rocephin 1 grams Route: IV; Rate: calculated rate; Site: right antecubital; sg 12:25 Drug: NS 0.9% 500 ml Route: IV; Rate: bolus; Site: right antecubital; sg Outcome: 12:37 Discharge ordered by MD. snw 13:15 Discharged to home ambulatory. sg 13:15 Condition: good 13:15 Discharge instructions given to patient, family, Instructed on discharge instructions, follow up and referral plans. medication usage, safety practices, Demonstrated understanding of instructions, follow-up care, medications, Prescriptions given X 2. 13:19 Patient left the ED. eb Signatures: Homer Perkins, RN RN sg Gunjan Ca, FRONT MAN-C FRONT MAN-Csnw Shruthi Dwyer, Pako RN RN Allyson Walters Eugenie Ramsey
--- NOTE | 2018-10-28 12:39 | EDPHYS ---
Physician Documentation [facility] Name: Danielle Arroyo Age: 33 yrs Sex: Female : 1985 Arrival Date: 10/28/2018 Time: 09:26 Bed 16 Private MD: Brooks George E ED Physician Rajesh Chance HPI: 10/28 11:55 This 33 yrs old Female presents to ER via Wheelchair with complaints of snw Abdominal Pain, Vomiting, Headache. 11:55 The patient presents with abdominal pain in the epigastric area, in the upper abdomen. snw Onset: The symptoms/episode began/occurred suddenly, at 02:00, and became persistent. The symptoms do not radiate. Associated signs and symptoms: Pertinent positives: nausea, vomiting, and diarrhea. The symptoms are described as crampy. Severity of pain: At its worst the pain was moderate. The patient has not experienced similar symptoms in the past. The patient has not recently seen a physician. 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 - Social history:: Smoking status: Patient/guardian denies using tobacco. - Ebola Screening: : No symptoms or risks identified at this time. ROS: 11:54 Constitutional: Negative for fever, chills, and weight loss, Eyes: Negative for injury, snw pain, redness, and discharge, ENT: Negative for injury, pain, and discharge, Neck: Negative for injury, pain, and swelling, Cardiovascular: Negative for chest pain, palpitations, and edema, Respiratory: Negative for shortness of breath, cough, wheezing, and pleuritic chest pain, Back: Negative for injury and pain, : Negative for injury, bleeding, discharge, and swelling, MS/Extremity: Negative for injury and deformity, Skin: Negative for injury, rash, and discoloration, Neuro: Negative for headache, weakness, numbness, tingling, and seizure, Psych: Negative for depression, anxiety, suicide ideation, homicidal ideation, and hallucinations. 11:54 Abdomen/GI: Positive for abdominal pain, nausea, vomiting, and diarrhea. Exam: 11:53 Head/Face: Normocephalic, atraumatic. Eyes: Pupils equal round and reactive to light, snw extra-ocular motions intact. Lids and lashes normal. Conjunctiva and sclera are non-icteric and not injected. Cornea within normal limits. Periorbital areas with no swelling, redness, or edema. ENT: Nares patent. No nasal discharge, no septal abnormalities noted. Tympanic membranes are normal and external auditory canals are clear. Oropharynx with no redness, swelling, or masses, exudates, or evidence of obstruction, uvula midline. Mucous membranes moist. Neck: Trachea midline, no thyromegaly or masses palpated, and no cervical lymphadenopathy. Supple, full range of motion without nuchal rigidity, or vertebral point tenderness. No Meningismus. Chest/axilla: Normal chest wall appearance and motion. Nontender with no deformity. No lesions are appreciated. 11:53 Respiratory: Lungs have equal breath sounds bilaterally, clear to auscultation and percussion. No rales, rhonchi or wheezes noted. No increased work of breathing, no retractions or nasal flaring. Back: No spinal tenderness. No costovertebral tenderness. Full range of motion. Skin: Warm, dry with normal turgor. Normal color with no rashes, no lesions, and no evidence of cellulitis. MS/ Extremity: Pulses equal, no cyanosis. Neurovascular intact. Full, normal range of motion. Neuro: Awake and alert, GCS 15, oriented to person, place, time, and situation. Cranial nerves II-XII grossly intact. Motor strength 5/5 in all extremities. Sensory grossly intact. Cerebellar exam normal. Normal gait. Psych: Awake, alert, with orientation to person, place and time. Behavior, mood, and affect are within normal limits. 11:53 Constitutional: The patient appears alert, awake, pale, uncomfortable. 11:53 Cardiovascular: Rate: tachycardic, Rhythm: regular, Pulses: no pulse deficits are appreciated. 11:53 Abdomen/GI: Inspection: abdomen appears normal, Bowel sounds: diminished, Palpation: mild abdominal tenderness, in the epigastric area, right upper quadrant and left upper quadrant. Vital Signs: 09:50 BP 132 / 76; Pulse 122; Resp 16; Temp 97.8; Pulse Ox 100% on R/A; Weight 111.13 kg; la1 Height 5 ft. 3 in. (160.02 cm); 11:00 BP 127 / 70; Pulse 110; Resp 16; Pulse Ox 99% on R/A; sg 12:24 BP 108 / 65; Pulse 102; Resp 16; Pulse Ox 99% on R/A; sg 09:50 Body Mass Index 43.40 (111.13 kg, 160.02 cm) la1 MDM: 09:55 Patient medically screened. snw 12:41 Data reviewed: vital signs, nurses notes. Data interpreted: Pulse oximetry: on room air snw is 99 %. Interpretation: normal. Counseling: I had a detailed discussion with the patient and/or guardian regarding: the historical points, exam findings, and any diagnostic results supporting the discharge/admit diagnosis, lab results, the need for outpatient follow up, to return to the emergency department if symptoms worsen or persist or if there are any questions or concerns that arise at home. Special discussion: Based on the history and exam findings, there is no indication for further emergent testing or inpatient evaluation. I discussed with the patient/guardian the need to see the primary care provider for further evaluation of the symptoms. 10/28 10:01 Order name: Basic Metabolic Panel; Complete Time: 11:41 snw 10/28 10:01 Order name: CBC with Diff snw 10/28 10:01 Order name: Hepatic Function; Complete Time: 11:41 snw 10/28 10:01 Order name: Lipase; Complete Time: 11:41 snw 10/28 10:01 Order name: Blood Culture Adult (2) snw 10/28 10:02 Order name: TS; Complete Time: 12:42 snw 10/28 10:02 Order name: TSH; Complete Time: 11:41 snw 10/28 10:24 Order name: Urine Dipstick--Ancillary (enter results); Complete Time: 11:14 eb 10/28 10:24 Order name: Urine --Ancillary (enter results); Complete Time: 11:14 eb 10/28 10:41 Order name: Urine Microscopic Only; Complete Time: 11:13 dh3 10/28 11:14 Order name: Urine Culture EDMS 10/28 12:37 Order name: CBC Smear Scan; Complete Time: 12:42 EDMS 10/28 10:01 Order name: IV Saline Lock; Complete Time: 10:56 snw 10/28 10:01 Order name: Labs collected and sent; Complete Time: 10:57 snw 10/28 10:01 Order name: Urine Test (obtain specimen); Complete Time: 10:24 snw Administered Medications: 10:50 Drug: TORadol 30 mg Route: IVP; Site: right antecubital; sg 10:50 Drug: Phenergan 6.25 mg Route: IVP; Site: right antecubital; sg 10:56 Drug: NS 0.9% 1000 ml Route: IV; Rate: 1 bolus; Site: right antecubital; sg 11:25 Drug: Rocephin 1 grams Route: IV; Rate: calculated rate; Site: right antecubital; sg 12:25 Drug: NS 0.9% 500 ml Route: IV; Rate: bolus; Site: right antecubital; sg Disposition: 10/29 09:19 Co-signature as Attending Physician, Rajesh Chance MD I agree with the assessment and dany plan of care. Disposition: 10/28/18 12:37 Discharged to Home. Impression: Nausea and vomiting, Diarrhea, unspecified, Dehydration, Urinary tract infection, site not specified, Iron deficiency anemia. - Condition is Stable. - Discharge Instructions: Iron Deficiency Anemia, Adult, Food Choices to Help Relieve Diarrhea, Adult, Diarrhea, Adult, Nausea and Vomiting, Adult, Urinary Tract Infection, Adult, Rehydration, Adult. - Prescriptions for Macrobid 100 mg Oral Capsule - take 1 capsule by ORAL route every 12 hours for 10 days; 20 capsule. promethazine 25 mg Oral Tablet - take 1 tablet by ORAL route every 6 hours As needed; 20 tablet. - Work release form, Medication Reconciliation Form, Thank You Letter, Antibiotic Education, Prescription Opioid Use form. - Follow up: Brooks George MD; When: 2 - 3 days; Reason: Recheck today's complaints, Continuance of care, Re-evaluation by your physician. Follow up: Emergency Department; When: As needed; Reason: Worsening of condition. Signatures: Dispatcher [employer] EDMS Homer Perkins RN RN sg Anderson, Corey, MD MD cha Therrien, Shelly, CARBON CAPTURE POWER PLANT ENGINEER-C CARBON CAPTURE POWER PLANT ENGINEER-Csnw Pako Sharif RN RN la1 Eugenie Garcia Corrections: (The following items were deleted from the chart) 10/28 11:18 11:09 Recheck Vital Signs ordered. angela sg 13:19 12:37 10/28/2018 12:37 Discharged to Home. Impression: Nausea and vomiting; Diarrhea, eb unspecified; Dehydration; Urinary tract infection, site not specified; Iron deficiency anemia. Condition is Stable. Forms are Medication Reconciliation Form, Thank You Letter, Antibiotic Education, Prescription Opioid Use. Follow up: Brooks George; When: 2 - 3 days; Reason: Recheck today's complaints, Continuance of care, Re-evaluation by your physician. Follow up: Emergency Department; When: As needed; Reason: Worsening of condition. angela
== END 2018-10-28 13:19 | disposition home or self-care (01) ==
LOC: ER 09:23
DX: N39.0 Urinary tract infection, site not specified (principal); R11.2 Nausea with vomiting, unspecified; R19.7 Diarrhea, unspecified; E86.0 Dehydration; D50.9 Iron deficiency anemia, unspecified
CPT/HCPCS: 87040 ×2; 87088; 85025; 87086; 80048; 36415; 86900; 86850; 81025; 86901; 80076; 84443; 83690; 96375; 96374; 99284; J2550; J0696; J7030 ×2; 81003; 81015